=== PATIENT | male | born 1960 | race Caucasian/White ===

== ENCOUNTER 2016-08-13 07:15 | Observation (INO) | payer SELFPAY ==
[~2016-08-13] VITALS: Ht 188 cm; Wt 81.0 kg
[2016-08-13] VITALS (9 sets, daily range): BP systolic 129–182; BP diastolic 80–91; PULSE 61–77; RESP 16–20; TEMP 97.8; O2SAT 92–100
[~2016-08-13 07:15] MED LIST: LORT7.5T3 PO; PENI500T PO; Z.0.NO CURRENT MEDS
--- NOTE | 2016-08-13 07:50 | PD ---
HPI Chief Complaint: Psychiatric Symptoms Time Seen by Provider: 07:29 Travel History International Travel<30 days: No Contact w/Intl Traveler<30days: No Traveled to known affect area: No History of Present Illness HPI This patient is brought in under police Granda act for suicidal ideation. He took an intentional overdose of alcohol and Klonopin. Patient is not able to provide much in the way of useful history or review of systems. It's unclear how much she took and when he took it. Denies other drugs. Denies IV drug use. PFSH Past Medical History Hypertension: Yes Neurologic: Yes (BELLS PALSY OVER PAST 1 YEAR, SYMPTOMS RECENTLY SUBSIDING) Social History Alcohol Use: Yes Tobacco Use: Yes (1 PPD) Allergies-Medications (Allergen,Severity, Reaction): Coded Allergies: No Known Allergies (Verified , 06/10/12) Reported Meds & Prescriptions Reported Meds & Active Scripts Active Lortab 7.5/500 (Acetaminophen/Hydrocodone Bitart) Tab 1 Tab PO Q6HPRN FOR PAIN Pen Vk (Penicillin V Potassium) 500 Mg Tab 1 Tab PO Q6 Reported No Current Meds (Miscellaneous Medication) Misc Review of Systems ROS Limitations: Clinical Condition, Altered Mental Status, Uncooperative, Poor Historian Physical Exam Narrative GENERAL: Disheveled well-developed patient in no apparent distress. SKIN: Focused skin assessment reveals no rash and nodules. Skin is Warm and dry. HEAD: Superficial abrasions/scratches to the scalp. Normocephalic. EYES: Pupils equal and round. No scleral icterus. No injection or drainage. ENT: No nasal bleeding or discharge. Mucous membranes pink and moist. NECK: Trachea midline. No JVD. No midline tenderness CARDIOVASCULAR: Regular rate and rhythm. No murmur appreciated. RESPIRATORY: No accessory muscle use. Clear to auscultation. Breath sounds equal bilaterally. GASTROINTESTINAL: Abdomen soft, non-tender, nondistended. Hepatic and splenic margins not palpable. MUSCULOSKELETAL: No obvious deformities. No clubbing. No cyanosis. No edema. NEUROLOGICAL: Awake and alert. No obvious cranial nerve deficits. Motor grossly within normal limits. Normal speech. PSYCHIATRIC: Appropriate mood and affect; insight and judgment poor. : Extremely swollen penis shaft, circumcised. No testicular or scrotal abnormality. No bruising. Some superficial skin breakdown on the volar aspect of the shaft Data Data Last Documented VS Vital Signs Date Time Temp Pulse Resp B/P Pulse Ox O2 Delivery O2 Flow Rate FiO2 08/13/16 14:00 70 16 159/83 96 Room Air 08/13/16 11:13 2 Orders Complete Blood Count With Diff (08/13/16 07:44) Basic Metabolic Panel (Bmp) (08/13/16 07:44) Urinalysis - C+S If Indicated (08/13/16 07:44) Oximetry (08/13/16 07:44) Iv Access Insert/Monitor (08/13/16 07:44) Ecg Monitoring (08/13/16 07:44) Psych Screen (08/13/16 07:44) Drug Screen, Random Urine (08/13/16 07:44) Alcohol (Ethanol) (08/13/16 07:44) Salicylates (Aspirin) (08/13/16 07:44) Tylenol (Acetaminophen) (08/13/16 07:44) Ct Brain W/O Iv Contrast(Rout) (08/13/16 ) Urine Culture (08/13/16 09:40) Electrocardiogram (08/13/16 07:52) Admit Order (Ed Use Only) (08/13/16 15:10) Labs Laboratory Tests Test 08/13/16 08/13/16 07:50 09:40 White Blood Count 5.3 TH/MM3 Red Blood Count 4.93 MIL/MM3 Hemoglobin 14.4 GM/DL Hematocrit 42.1 % Mean Corpuscular Volume 85.4 FL Mean Corpuscular Hemoglobin 29.2 PG Mean Corpuscular Hemoglobin 34.1 % Concent Red Cell Distribution Width 13.7 % Platelet Count 137 TH/MM3 Mean Platelet Volume 9.5 FL Neutrophils (%) (Auto) 61.9 % Lymphocytes (%) (Auto) 24.7 % Monocytes (%) (Auto) 9.3 % Eosinophils (%) (Auto) 3.6 % Basophils (%) (Auto) 0.5 % Neutrophils # (Auto) 3.3 TH/MM3 Lymphocytes # (Auto) 1.3 TH/MM3 Monocytes # (Auto) 0.5 TH/MM3 Eosinophils # (Auto) 0.2 TH/MM3 Basophils # (Auto) 0.0 TH/MM3 CBC Comment DIFF FINAL Differential Comment Sodium Level 143 MEQ/L Potassium Level 3.2 MEQ/L Chloride Level 107 MEQ/L Carbon Dioxide Level 26.1 MEQ/L Anion Gap 10 MEQ/L Blood Urea Nitrogen 11 MG/DL Creatinine 0.87 MG/DL Estimat Glomerular Filtration 91 ML/MIN Rate Random Glucose 78 MG/DL Calcium Level 8.6 MG/DL Salicylates Level 2.0 MG/DL Acetaminophen Level LESS THAN 2.0 MCG/ML Ethyl Alcohol Level LESS THAN 3 MG/DL Urine Color YELLOW Urine Turbidity CLEAR Urine pH 6.0 Urine Specific [place] 1.011 Urine Protein TRACE mg/dL Urine Glucose (UA) NEG mg/dL Urine Ketones NEG mg/dL Urine Occult Blood MOD Urine Nitrite NEG Urine Bilirubin NEG Urine Urobilinogen LESS THAN 2.0 MG/DL Urine Leukocyte Esterase SMALL Urine RBC 0-3 /hpf Urine WBC 0-2 /hpf Urine WBC Clumps RARE Urine Bacteria RARE /hpf Microscopic Urinalysis Comment CULTURE INDICATED MDM Medical Decision Making Medical Screen Exam Complete: Yes Emergency Medical Condition: Yes Medical Record Reviewed: Yes Differential Diagnosis Overdose, suicidal ideation, intoxication, penile edema Narrative Course I have reviewed the patient's electronic medical record. Last visit here was June 2012 for dental pain IV placed CBC is normal Metabolic profile shows hypokalemia of 3.2 Alcohol level is negative Tylenol is negative Aspirin is negative Urinalysis is clean Urine tox screen for some reason was not done and I'm calling the lab to run it now I've ordered psychiatric evaluation as he is here under the Granda act. Patient has a lot of penile edema from a constrictive band that he was wearing for according to him a long time. I would Like to see if he is able to urinate on his own. Patient was able to be catheterized without difficulty. I observed him for a total of 7.5 hours and he still is drowsy and altered and not stable for outpatient follow-up or even psych screening because he so unable to provide history. I reviewed with Dr. Jensen who will do observation for toxic encephalopathy from polysubstance abuse Critical Care Narrative Aggregate critical care time was 32 minutes. Time to perform other separately billable procedures was not included in the critical care time. My time did not include minutes spent treating any other patients simultaneously or on activities that did not directly contribute to the patient's treatment. The services I provided to this patient were to treat and/or prevent clinically significant deterioration that could result in: Loss of airway, cardiopulmonary arrest, hypoxemic brain injury, aspiration I provided critical care services requiring my management, as noted below: Chart data review, documentation time, medication orders and management, vital sign assessments/reviewing monitor data, ordering and reviewing lab tests, ordering and interpreting/reviewing x-rays and diagnostic studies, care of the patient and discussion of the patient with the admitting physicians. Diagnosis Primary Impression: Toxic encephalopathy Additional Impression: Polysubstance abuse Admitting Information Admitting Physician Requests: Observation Anthony Ybarra MD Aug 13, 2016 07:50
[2016-08-13 08:21] LABS: AUTOMATED NEUTROPHIL # 3.3 TH/MM3 (1.8-7.7); BASOPHIL % 0.5 % (0.0-2.0); EOSINOPHIL # 0.2 TH/MM3 (0-0.4); EOSINOPHIL % 3.6 % (0.0-4.0); HEMATOCRIT 42.1 % (39.0-51.0); HEMO FLAGS DIFF FINAL; LYMPH % 24.7 % (9.0-44.0); LYMPHOCYTE # 1.3 TH/MM3 (1.0-4.8); MEAN CELL VOLUME 85.4 FL (80.0-100.0); MEAN CORPUSCULAR HEMOGLOBIN 29.2 PG (27.0-34.0); MEAN CORPUSCULAR HGB CONC 34.1 % (32.0-36.0); MONO % 9.3 % (0.0-8.0); NEUT % 61.9 % (16.0-70.0); PLATELET COUNT 137 TH/MM3 (150-450); RED BLOOD COUNT 4.93 MIL/MM3 (4.50-5.90); RED CELL DISTRIBUTION WIDTH 13.7 % (11.6-17.2); WHITE BLOOD COUNT 5.3 TH/MM3 (4.0-11.0)
[2016-08-13 08:33] LABS: ANION GAP 10 MEQ/L (5-15); BICARBONATE 26.1 MEQ/L (21.0-32.0); BLOOD UREA NITROGEN 11 MG/DL (7-18); CHLORIDE 107 MEQ/L (98-107); GLOMERULAR FILTRATION RATE 91 ML/MIN (>89); POTASSIUM 3.2 MEQ/L (3.5-5.1); SODIUM (NA) 143 MEQ/L (136-145)
[2016-08-13 08:34] LABS: ACETAMINOPHEN LESS THAN 2.0 MCG/ML (10.0-30.0)
--- NOTE | 2016-08-13 08:34 | RADRPT ---
EXAM DATE/TIME: 08/13/2016 08:15 [place] COMPARISON: No previous studies available for comparison. INDICATIONS : Altered mental status RADIATION DOSE: 43.23 CTDIvol (mGy) MEDICAL HISTORY : Non-responsive. SURGICAL HISTORY : Non-responsive. ENCOUNTER: Initial ACUITY: 2 days PAIN SCALE: Non-responsive LOCATION: cranial TECHNIQUE: Multiple contiguous axial images were obtained of the head. Using automated exposure control and adj ustment of the mA and/or kV according to patient size, radiation dose was kept as low as reasonably a chievable to obtain optimal diagnostic quality images. FINDINGS: CEREBRUM: The ventricles are normal for age. No evidence of midline shift, mass lesion, hemorrhage or acute in farction. No extra-axial fluid collections are seen. POSTERIOR FOSSA: The cerebellum and brainstem are intact. The 4th ventricle is midline. The cerebellopontine angle i s unremarkable. EXTRACRANIAL: The visualized portion of the orbits is intact. SKULL: The calvaria is intact. No evidence of skull fracture. CONCLUSION: 1. No acute intracranial abnormality identified. Yasmany Velasquez MD on August 13, 2016 at 8:28 Board Certified Radiologist. This report was verified electronically.
[2016-08-13 10:14] LABS: BLOOD, URINE MOD (NEG); GLUCOSE,URINE NEG (NEG); KETONE, URINE NEG (NEG); NITRITE,URINE NEG (NEG); URINE COLOR YELLOW (YELLW/STRAW)
[2016-08-13 10:51] LABS: BACTERIA, URINE RARE /hpf; RBC, URINE 0-3 /hpf (0-3); WBC, URINE 0-2 /hpf (0-5)
[2016-08-13 10:52] LABS: COMMENT (UR) CULTURE INDICATED; CULTURE IF INDICATED CULTURE INDICATED
[2016-08-13] MEDS ORDERED: SODIUM CHLORIDE 0.9% FLUSH 10 ML FLUSH IV FLUSH PRN (15:30)
[2016-08-13] MEDS ORDERED: ACETAMINOPHEN 325 MG TAB PO PRN ×2 (15:30)
[2016-08-13] MEDS ORDERED: NALOXONE HCL 0.4 MG/ML AMP IV PRN (15:30)
[2016-08-13] MEDS ORDERED: ONDANSETRON HCL 4 MG/2 ML VIAL IVP PRN (15:30)
[2016-08-13 15:40] LABS: AMPHETAMINE, URINE NEG (NEG); BARBITURATES, URINE NEG (NEG); COCAINE, URINE POS (NEG)
--- NOTE | 2016-08-13 16:11 | HHI.HP ---
HPI Service [facility] Primary Care Physician No Primary Care Physician Admission Diagnosis toxic encephalopathy Diagnoses: (1) Toxic encephalopathy (2) Polysubstance abuse Chief Complaint: Altered mental status Travel History International Travel<30 Days: No Contact w/Intl Traveler <30 Da: No Traveled to Known Affected Are: No History of Present Illness Patient is unable to communicate at this time during my exam and history is obtained from the ED report and chart review below: "This patient is brought in under police Granda act for suicidal ideation. He took an intentional overdose of alcohol and Klonopin. Patient is not able to provide much in the way of useful history or review of systems. It's unclear how much she took and when he took it. Denies other drugs. Denies IV drug use. " Abnormal labs include a UDS positive for cocaine, marijuana, benzo Review of Systems ROS Limitations: Altered Mental Status Except as stated in HPI: all other systems reviewed are Neg Past Family Social History Past Medical History Hypertension: Yes Neurologic: Yes (BELLS PALSY OVER PAST 1 YEAR, SYMPTOMS RECENTLY SUBSIDING) Past Surgical History Unable to obtain Reported Medications Unable to obtain Allergies: Coded Allergies: No Known Allergies (Verified , 06/10/12) Family History Unable to obtain Social History Alcohol Use: Yes Tobacco Use: Yes (1 PPD) Physical Exam Vital Signs Vital Signs Date Time Temp Pulse Resp B/P Pulse Ox O2 Delivery O2 Flow Rate FiO2 08/13/16 14:00 70 16 159/83 96 Room Air 08/13/16 11:13 61 16 131/85 100 Nasal Cannula 2 08/13/16 09:14 63 16 136/81 92 Nasal Cannula 3 08/13/16 07:45 95 Room Air 08/13/16 07:23 76 16 100 Physical Exam GENERAL: lethargic SKIN: No rashes, ecchymoses or lesions. Cool and dry. HEAD: Atraumatic. Normocephalic. No temporal or scalp tenderness. EYES: Pupils equal round and reactive. Extraocular motions intact. No scleral icterus. No injection or drainage. ENT: Nose without bleeding, purulent drainage or septal hematoma. Throat without erythema, tonsillar hypertrophy or exudate. Uvula midline. Airway patent. NECK: Trachea midline. No JVD or lymphadenopathy. Supple, nontender, no meningeal signs. CARDIOVASCULAR: Regular rate and rhythm without murmurs, gallops, or rubs. RESPIRATORY: Clear to auscultation. Breath sounds equal bilaterally. No wheezes , rales, or rhonchi. GASTROINTESTINAL: Abdomen soft, non-tender, nondistended. No hepato-splenomegaly , or palpable masses. No guarding. MUSCULOSKELETAL: Extremities without clubbing, cyanosis, or edema. No joint tenderness, effusion, or edema noted. No calf tenderness. Negative Homans sign bilaterally. NEUROLOGICAL: lethargic : penile and scrotal edema Laboratory Laboratory Tests Test 08/13/16 08/13/16 07:50 09:40 White Blood Count 5.3 Red Blood Count 4.93 Hemoglobin 14.4 Hematocrit 42.1 Mean Corpuscular Volume 85.4 Mean Corpuscular Hemoglobin 29.2 Mean Corpuscular Hemoglobin 34.1 Concent Red Cell Distribution Width 13.7 Platelet Count 137 Mean Platelet Volume 9.5 Neutrophils (%) (Auto) 61.9 Lymphocytes (%) (Auto) 24.7 Monocytes (%) (Auto) 9.3 Eosinophils (%) (Auto) 3.6 Basophils (%) (Auto) 0.5 Neutrophils # (Auto) 3.3 Lymphocytes # (Auto) 1.3 Monocytes # (Auto) 0.5 Eosinophils # (Auto) 0.2 Basophils # (Auto) 0.0 CBC Comment DIFF FINAL Differential Comment Sodium Level 143 Potassium Level 3.2 Chloride Level 107 Carbon Dioxide Level 26.1 Anion Gap 10 Blood Urea Nitrogen 11 Creatinine 0.87 Estimat Glomerular Filtration 91 Rate Random Glucose 78 Calcium Level 8.6 Salicylates Level 2.0 Acetaminophen Level LESS THAN 2.0 Ethyl Alcohol Level LESS THAN 3 Urine Color YELLOW Urine Turbidity CLEAR Urine pH 6.0 Urine Specific [place] 1.011 Urine Protein TRACE Urine Glucose (UA) NEG Urine Ketones NEG Urine Occult Blood MOD Urine Nitrite NEG Urine Bilirubin NEG Urine Urobilinogen LESS THAN 2.0 Urine Leukocyte Esterase SMALL Urine RBC 0-3 Urine WBC 0-2 Urine WBC Clumps RARE Urine Bacteria RARE Microscopic Urinalysis Comment CULTURE INDICATED Urine Opiates Screen NEG Urine Barbiturates Screen NEG Urine Amphetamines Screen NEG Urine Benzodiazepines Screen POS Urine Cocaine Screen POS Urine Cannabinoids Screen POS Date/Time Procedure Status Source Growth 08/13/16 09:40 Urine Culture Received Urine Random Urine Pending Result Diagram: 08/13/16 0750 08/13/16 0750 Imaging Last Impressions Head CT 08/13/16 0000 Signed Impressions: Service Date/Time: Saturday, August 13, 2016 08:15 - CONCLUSION: 1. No acute intracranial abnormality identified. Yasmany Velasquez MD Assessment and Plan Problem List: (1) Toxic encephalopathy ICD Code: G92 Status: Acute (2) Polysubstance abuse ICD Code: F19.10 Status: Acute Assessment and Plan 56-year-old man with Toxic encephalopathy Polysubstance abuse Head CT noted and reviewed by me without any intracranial process UDS positive for cocaine, marijuana, benzos Penile and scrotal edema Elevate scrotum and penile Laxis PRN Acute mood disorder Currently Granda acted and consult psychiatry DVT prophylaxis: Bilateral SCDs Code Status Full code Discussed Condition With ED physician Bartolome Dukes MD Aug 13, 2016 16:11
[2016-08-13] MEDS ORDERED: cloNIDine HCL 0.1 MG TAB PO PRN (18:45)
[2016-08-13] MEDS: ENALAPRILAT 1.25 MG/ML VIAL IV PUSH PRN (18:49)
[2016-08-13] MEDS: SODIUM CHLORIDE 0.9% FLUSH 10 ML FLUSH IV FLUSH SCH (20:10)
[2016-08-14 00:49] VITALS: BP 134/82; PULSE 88; RESP 20; TEMP 97.8; O2SAT 97
[2016-08-14 04:14] VITALS: BP 116/66; PULSE 77; RESP 18; TEMP 98.5; O2SAT 97
[2016-08-14 05:11] LABS: BASOPHIL % 0.4 % (0.0-2.0); EOSINOPHIL # 0.1 TH/MM3 (0-0.4); EOSINOPHIL % 2.1 % (0.0-4.0); HEMATOCRIT 46.7 % (39.0-51.0); HEMO FLAGS DIFF FINAL; LYMPH % 20.4 % (9.0-44.0); LYMPHOCYTE # 1.5 TH/MM3 (1.0-4.8); MEAN CELL VOLUME 86.2 FL (80.0-100.0); MEAN CORPUSCULAR HEMOGLOBIN 28.6 PG (27.0-34.0); MEAN CORPUSCULAR HGB CONC 33.1 % (32.0-36.0); MONO % 7.9 % (0.0-8.0); NEUT % 69.2 % (16.0-70.0); PLATELET COUNT 143 TH/MM3 (150-450); RED BLOOD COUNT 5.42 MIL/MM3 (4.50-5.90); RED CELL DISTRIBUTION WIDTH 13.8 % (11.6-17.2); WHITE BLOOD COUNT 7.2 TH/MM3 (4.0-11.0)
[2016-08-14 05:38] LABS: ALT (GPT) 18 U/L (12-78); ANION GAP 10 MEQ/L (5-15); AST (GOT) 19 U/L (15-37); BICARBONATE 26.1 MEQ/L (21.0-32.0); BLOOD UREA NITROGEN 16 MG/DL (7-18); CHLORIDE 107 MEQ/L (98-107); GLOMERULAR FILTRATION RATE 97 ML/MIN (>89); POTASSIUM 3.2 MEQ/L (3.5-5.1); SODIUM (NA) 143 MEQ/L (136-145)
[2016-08-14 05:40] LABS: ALKALINE PHOSPHATASE 84 U/L (45-117); TOTAL BILIRUBIN ADULT 1.3 MG/DL (0.2-1.0)
[2016-08-14 08:38] VITALS: BP 181/101; PULSE 83; RESP 22; TEMP 98.5; O2SAT 99
[2016-08-14] MEDS: ENALAPRILAT 1.25 MG/ML VIAL IV PUSH PRN (09:14)
[2016-08-14] MEDS: SODIUM CHLORIDE 0.9% FLUSH 10 ML FLUSH IV FLUSH SCH (09:14)
[2016-08-14] MEDS ORDERED: POTASSIUM CHLORIDE 20 MEQ CONTROLLED RELEASE TAB PO ONE (10:45)
[2016-08-14 10:54] VITALS: BP 126/84
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
[2016-08-14 11:52] VITALS: BP 125/82; PULSE 86; RESP 18; TEMP 98.7; O2SAT 96
--- NOTE | 2016-08-14 12:59 | PD ---
History of Present Illness Chief Complaint: Psychiatric Symptoms Time Seen by Provider: 13:00 Travel History International Travel<30 Days: No Contact w/Intl Traveler<30days: No Known affected area: No Legal Status Legal Status: Granda Act Granda Act Signed By: History of Present Illness: Patient interviewed and recalls taking approximately 60 Klonopin-type pills that he got off the street. He reportedly does not remember why he took them at this time but this physician reminded him he had earlier stated he was suicidal. At this point, the patient denies being suicidal or homicidal. He is verbally john for safety. His cognition is intact and he exhibits no psychotic symptoms. He freely admits to his polysubstance abuse and denies being an alcoholic. However he does spend his money on crack cocaine and other substances. He is somewhat stressed because he has paid over $100,000 per a boat he owns and they are threatening to repossess it because he owes $1500 PFSH Past Medical History Hypertension: Yes Neurologic: Yes (BELLS PALSY OVER PAST 1 YEAR, SYMPTOMS RECENTLY SUBSIDING) Psychiatric History Psychiatric History Hx Psychiatric Treatment: Denies for previous treatment. History of Inpatient Treatment: No Guns or firearms in home: No Social History Hx Alcohol Use: Yes Hx Tobacco Use: Yes (1 PPD) Substance Use Type: Alcohol, Crack, Marijuana, Benzos (Valium,Xanax) Hx of Substance Use Treatment: No Allergies-Medications (Allergen,Severity, Reaction): Coded Allergies: No Known Allergies (Verified , 06/10/12) Reported Meds & Prescriptions Reported Meds & Active Scripts Active Review of Systems Except as stated in HPI: all other systems reviewed are Neg Exam Alert: Yes [place]: Person, Place, Date, Situation Mood: Calm Affect: Appropriate Speech: Clear, Logical Eye Contact: Normal Memory Intact: Immediate, Recent, Remote Insight/Judgement Adequate, except when it comes to substance abuse. MDM Medical Decision Making Medical Record Reviewed: Yes Assessment/Plan Patient's Granda act is being lifted per his request and he may be discharged when he is medically cleared. At this point, his cognition is intact and he is adamantly denying any suicidal or homicidal ideation, plan or intent. He was advised by this physician that he should not continue to abuse drugs such as crack cocaine and benzodiazepines. While this may have been a suicide attempt, when the patient is using drugs, it is difficult to ascertain his true motive. In either event, the patient's primary problem is drug abuse and this facility is not licensed for detox and rehabilitation. The patient was given a referral to [facility]. He wants to find his girlfriend first. He also wants to continue working his [employer] business. Both of these are signs of future thinking and this physician does not believe the patient is suicidal at this time. Finally, the patient wants to continue using his boat for fishing. Orders Admit Order (Ed Use Only) (08/13/16 15:10) Place In Observation (08/13/16 ) Code Status (08/13/16 15:24) Vital Signs (Adult) Q4H (08/13/16 15:24) Activity Oob With Assistance (08/13/16 15:24) Sodium Chloride 0.9% Flush (Ns Flush) (08/13/16 15:30) Sodium Chloride 0.9% Flush (Ns Flush) (08/13/16 21:00) Acetaminophen (Tylenol) (08/13/16 15:30) Ondansetron Inj (Zofran Inj) (08/13/16 15:30) Comprehensive Metabolic Panel (08/14/16 06:00) Complete Blood Count With Diff (08/14/16 06:00) Scd Bilateral/Knee High SIMRAN.BID (08/13/16 15:24) Brian Bilateral/Knee High SIMRAN.QSHIFT (08/13/16 15:24) Acetaminophen (Tylenol) (08/13/16 15:30) Naloxone Inj (Narcan Inj) (08/13/16 15:30) Consult Psychiatry (08/13/16 ) (Hub Use Only)Inp Phy Cons/Ref (08/13/16 ) Enalaprilat Inj (Vasotec Inj) (08/13/16 18:45) Clonidine (Catapres) (08/13/16 18:45) Physician Name Changes (08/14/16 ) Potassium Chloride (Kcl) (08/14/16 10:45) Magnesium (Mg) (08/14/16 10:41) Neuro Checks . ORDERED (08/14/16 11:07) Diet Regular Basic (08/14/16 Lunch) Results Vital Signs Date Time Temp Pulse Resp B/P Pulse Ox O2 Delivery O2 Flow Rate FiO2 08/14/16 11:52 98.7 86 18 125/82 96 08/14/16 10:54 126/84 08/14/16 08:38 98.5 83 22 181/101 99 08/14/16 04:14 98.5 77 18 116/66 97 08/14/16 00:49 97.8 88 20 134/82 97 08/13/16 19:15 97.8 75 20 129/80 98 08/13/16 18:33 73 18 182/91 98 08/13/16 17:58 77 16 170/80 100 Room Air 08/13/16 15:55 74 16 138/90 96 Nasal Cannula 2 08/13/16 14:00 70 16 159/83 96 Room Air Laboratory Tests Test 08/14/16 04:18 White Blood Count 7.2 Red Blood Count 5.42 Hemoglobin 15.5 Hematocrit 46.7 Mean Corpuscular Volume 86.2 Mean Corpuscular Hemoglobin 28.6 Mean Corpuscular Hemoglobin 33.1 Concent Red Cell Distribution Width 13.8 Platelet Count 143 Mean Platelet Volume 9.6 Neutrophils (%) (Auto) 69.2 Lymphocytes (%) (Auto) 20.4 Monocytes (%) (Auto) 7.9 Eosinophils (%) (Auto) 2.1 Basophils (%) (Auto) 0.4 Neutrophils # (Auto) 5.0 Lymphocytes # (Auto) 1.5 Monocytes # (Auto) 0.6 Eosinophils # (Auto) 0.1 Basophils # (Auto) 0.0 CBC Comment DIFF FINAL Differential Comment Sodium Level 143 Potassium Level 3.2 Chloride Level 107 Carbon Dioxide Level 26.1 Anion Gap 10 Blood Urea Nitrogen 16 Creatinine 0.83 Estimat Glomerular Filtration 97 Rate Random Glucose 68 Calcium Level 8.7 Magnesium Level 2.4 Total Bilirubin 1.3 Aspartate Amino Transf 19 (AST/SGOT) Alanine Aminotransferase 18 (ALT/SGPT) Alkaline Phosphatase 84 Total Protein 7.4 Albumin 3.7 Date/Time Procedure Status Source Growth 08/13/16 09:40 Urine Culture Received Urine Random Urine Pending Diagnosis Primary Impression: Polysubstance abuse Myke Jimenez MD Aug 14, 2016 12:59
--- NOTE | 2016-08-14 14:38 | HHI.DCPOC ---
Discharge Care Plan Diagnosis: (1) Polysubstance abuse (2) Depression Goals to Promote Your Health * To prevent worsening of your condition and complications * To maintain your health at the optimal level Directions to Meet Your Goals Take your medications as prescribed Follow your dietary instruction Follow activity as directed Keep your appointments as scheduled Take your immunizations and boosters as scheduled If your symptoms worsen call your PCP, if no PCP go to Urgent Care Center or Emergency Room Smoking is Dangerous to Your Health. Avoid second hand smoke Call the 24-hour hour crisis hotline for domestic abuse at Juanis Calles PA-C Aug 14, 2016 14:38
--- NOTE | 2016-08-14 21:19 | EKG ---
Date Performed: 08/13/2016 Time Performed: 07:52:43 PTAGE: 56 years EKG: Sinus rhythm MINIMAL VOLTAGE CRITERIA FOR LVH, CONSIDER NORMAL VARIANT BORDERLINE ECG NO PREVIOUS TRACING DOCTOR: Eneida Mosher Interpretating Date/Time 08/14/2016 21:14:21
== END 2016-08-14 17:45 | disposition home or self-care (01) ==
LOC: NEPE 07:15 → NEDA 15:14 → NEPGCP 18:36
PROVIDERS: ADMIT Hospitalist; ATTEND Hospitalist
DX: T42.4X2A Poisoning by benzodiazepines, intentional self-harm, initial encounter (principal); G92 Toxic encephalopathy; I10 Essential (primary) hypertension; G51.0 Bell's palsy; N48.89 Other specified disorders of penis; N50.89 Other specified disorders of the male genital organs; F39 Unspecified mood [affective] disorder; F17.200 Nicotine dependence, unspecified, uncomplicated
CPT/HCPCS: 70450; 80048; 80053; 80307; 81001; 83735; 85025; 87086; 93005; 96374; 96375; 96376; 99291; G0378; J2405

== ENCOUNTER 2016-09-07 17:30 | Emergency (ER) | payer OTHER ==
[~2016-09-07] VITALS: Ht 185.4 cm; Wt 79.0 kg
--- NOTE | 2016-09-07 19:59 | PD ---
HPI Chief Complaint: Psychiatric Symptoms Time Seen by Provider: 19:48 Travel History International Travel<30 days: No Contact w/Intl Traveler<30days: No Traveled to known affect area: No History of Present Illness HPI 56-year-old male presents under Granda act initiated by a nurse practitioner at [facility]. The patient was admitted on August 13 for toxic encephalopathy. He is discharged in August 14. Reports that he return on August 15 because he is still feeling depressed. He reportedly attempted to hang himself and also attempted carbon monoxide poisoning on that day. He reports that since then his life has become somewhat more stableshe reports that he quit drinking alcohol and he moved into his boat. He has since started to see a counselor at [facility] whom he saw today. He reports "I must said the wrong thing because I was placed under Granda act." According to his paperwork the patient has been having some life stressors and reportedly says that he does not want to live anymore. He reports that he he actually feels much better than when he was here on August 13 and is denying any thoughts of depression, suicidal or homicidal ideation. He admits to taking half a Lortab recently as well as smoking some marijuana. He denies any other drug use. He reports that he was looking forward to having his son visit him this weekend. He has no other complaints at this time. [facility], [facility] Past Medical History Hypertension: Yes Neurologic: Yes (BELLS PALSY OVER PAST 1 YEAR, SYMPTOMS RECENTLY SUBSIDING) Social History Alcohol Use: Yes Tobacco Use: Yes (1 PPD) Allergies-Medications (Allergen,Severity, Reaction): Coded Allergies: No Known Allergies (Verified , 09/07/16) Reported Meds & Prescriptions Reported Meds & Active Scripts Active No Active Prescriptions or Reported Medications Review of Systems Except as stated in HPI: all other systems reviewed are Neg Physical Exam Narrative GENERAL: Well-developed well-nourished male in no acute distress alert and interactive and responding to questions and commands appropriately. SKIN: Warm and dry. HEAD: Atraumatic. Normocephalic. EYES: Pupils equal and round. No scleral icterus. No injection or drainage. ENT: No nasal bleeding or discharge. Mucous membranes pink and moist. NECK: Trachea midline. No JVD. CARDIOVASCULAR: Regular rate and rhythm. No murmur appreciated. RESPIRATORY: No accessory muscle use. Clear to auscultation. Breath sounds equal bilaterally. GASTROINTESTINAL: Abdomen soft, non-tender, nondistended. Hepatic and splenic margins not palpable. MUSCULOSKELETAL: No obvious deformities. No clubbing. No cyanosis. No edema. NEUROLOGICAL: Awake and alert. No obvious cranial nerve deficits. Motor grossly within normal limits. Normal speech. PSYCHIATRIC: Appropriate mood and affect; insight and judgment normal. Data Data Last Documented VS Vital Signs Date Time Temp Pulse Resp B/P Pulse Ox O2 Delivery O2 Flow Rate FiO2 09/07/16 20:17 98.2 71 16 167/102 98 Room Air Orders Drug Screen, Random Urine (09/07/16 19:55) Psych Screen (09/07/16 19:55) [facility] Medical Decision Making Medical Screen Exam Complete: Yes Emergency Medical Condition: Yes Medical Record Reviewed: Yes Differential Diagnosis Adjustment reaction, acute psychosis, substance induced mood disorder, major depressive disorder Narrative Course 56-year-old male with recent admission for toxic encephalopathy presents under Granda act for psychiatric evaluation. I reviewed his lab work from his previous visit. His CBC revealed a platelet count of 143, otherwise unremarkable. CMP revealed potassium 3.2 otherwise unremarkable. Drug screen was positive for benzodiazepines, cocaine and cannabinoids. Mental health screening discussed with the patient. Psychiatric screen ordered. The patient is medically cleared for psychiatric disposition. Diagnosis Primary Impression: Medical clearance for psychiatric admission Scripts No Active Prescriptions or Reported Meds Hemant George Sep 07, 2016 19:59
[2016-09-07 20:17] VITALS: BP 167/102; PULSE 71; RESP 16; TEMP 98.2; O2SAT 98
[2016-09-07 21:48] LABS: AMPHETAMINE, URINE NEG (NEG); BARBITURATES, URINE NEG (NEG); COCAINE, URINE POS (NEG)
[2016-09-07 21:53] LABS: AUTOMATED NEUTROPHIL # 2.6 TH/MM3 (1.8-7.7); BASOPHIL % 0.7 % (0.0-2.0); EOSINOPHIL # 0.1 TH/MM3 (0-0.4); EOSINOPHIL % 2.3 % (0.0-4.0); HEMATOCRIT 40.3 % (39.0-51.0); HEMO FLAGS DIFF FINAL; LYMPH % 42.9 % (9.0-44.0); LYMPHOCYTE # 2.5 TH/MM3 (1.0-4.8); MEAN CELL VOLUME 84.9 FL (80.0-100.0); MEAN CORPUSCULAR HGB CONC 34.2 % (32.0-36.0); MONO % 8.9 % (0.0-8.0); NEUT % 45.2 % (16.0-70.0); PLATELET COUNT 146 TH/MM3 (150-450); RED BLOOD COUNT 4.74 MIL/MM3 (4.50-5.90); RED CELL DISTRIBUTION WIDTH 13.8 % (11.6-17.2); WHITE BLOOD COUNT 5.8 TH/MM3 (4.0-11.0)
[2016-09-07 22:14] LABS: BICARBONATE 27.4 MEQ/L (21.0-32.0); POTASSIUM 3.7 MEQ/L (3.5-5.1)
[2016-09-08 00:49] VITALS: BP 166/98; PULSE 71; RESP 16; O2SAT 98
[2016-09-08 07:04] VITALS: BP 159/106; PULSE 81; RESP 18; O2SAT 98
--- NOTE | 2016-09-08 10:23 | PD ---
History of Present Illness Chief Complaint: Psychiatric Symptoms Time Seen by Provider: 10:00 Travel History International Travel<30 Days: No Contact w/Intl Traveler<30days: No Known affected area: No Legal Status Legal Status: Granda Act Granda Act Comment: INTITIATED BY: [facility] AT [facility] History of Present Illness: 56-year-old male with significant history of alcohol abuse, apparently Jesus Alberto acted for attempting suicide, once by hanging and a second time by carbon monoxide poisoning. He again stated he was stressed and did not want to live. He was recently evicted from his home and lives on his boat. His ex-girlfriend has a restraining order against him. However, he was positive for cocaine and cannabis on this visit. Alcohol toxicology screen was not ordered but the patient also admits to intoxication last night. At this time the patient is calm and cooperative. He denies any suicidal or homicidal ideation. He continues to report multiple stressors in his life but they appear to be the result of his alcohol and drug use. He is john for safety. PFSH Past Medical History Hypertension: Yes Neurologic: Yes (BELLS PALSY OVER PAST 1 YEAR, SYMPTOMS RECENTLY SUBSIDING) Immunizations Current: Yes Tetanus Vaccination: Unknown Influenza Vaccination: No Psychiatric History Psychiatric History Hx Psychiatric Treatment: [facility] OUTPATIENT FOR COUNSELOR TODAY, 09-07-16 History of Inpatient Treatment: No Guns or firearms in home: No Social History Hx Alcohol Use: No Hx Tobacco Use: Yes (1 PPD) Hx Substance Use: Yes Substance Use Type: Alcohol, Crack, Marijuana, Benzos (Valium,Xanax), Cocaine Hx of Substance Use Treatment: No Allergies-Medications (Allergen,Severity, Reaction): Coded Allergies: No Known Allergies (Verified , 09/07/16) Reported Meds & Prescriptions Reported Meds & Active Scripts Active No Active Prescriptions or Reported Medications Review of Systems Except as stated in HPI: all other systems reviewed are Neg Exam Alert: Yes [place]: Person, Place, Date, Situation Mood: Calm Affect: Appropriate, Euthymic Speech: Clear, Logical Eye Contact: Normal Memory Intact: Immediate, Recent, Remote Insight/Judgement Adequate [facility] Medical Decision Making Medical Record Reviewed: Yes Assessment/Plan Spoke to the patient's nurse regarding the patient's condition. Patient has been observed since last night. He is no longer intoxicated. He does continue to admit to financial stress, relationship stress, employment stress, etc. These problems however remain related to his drug and alcohol abuse. He does not qualify for Granda act or inpatient psychiatric hospitalization at this time. He would like to go home and this physician recommends he returned to [facility] for treatment of his substance abuse problems. Orders Drug Screen, Random Urine (09/07/16 19:55) Psych Screen (09/07/16 19:55) Complete Blood Count With Diff (09/07/16 21:30) Basic Metabolic Panel (Bmp) (09/07/16 21:30) Diet Regular Basic (09/08/16 Breakfast) Results Vital Signs Date Time Temp Pulse Resp B/P Pulse Ox O2 Delivery O2 Flow Rate FiO2 09/08/16 07:04 81 18 159/106 98 09/08/16 00:49 71 16 166/98 98 Room Air 09/07/16 20:17 98.2 71 16 167/102 98 Room Air Laboratory Tests Test 09/07/16 09/07/16 21:15 21:45 Urine Opiates Screen NEG Urine Barbiturates Screen NEG Urine Amphetamines Screen NEG Urine Benzodiazepines Screen NEG Urine Cocaine Screen POS Urine Cannabinoids Screen POS White Blood Count 5.8 Red Blood Count 4.74 Hemoglobin 13.8 Hematocrit 40.3 Mean Corpuscular Volume 84.9 Mean Corpuscular Hemoglobin 29.0 Mean Corpuscular Hemoglobin 34.2 Concent Red Cell Distribution Width 13.8 Platelet Count 146 Mean Platelet Volume 9.5 Neutrophils (%) (Auto) 45.2 Lymphocytes (%) (Auto) 42.9 Monocytes (%) (Auto) 8.9 Eosinophils (%) (Auto) 2.3 Basophils (%) (Auto) 0.7 Neutrophils # (Auto) 2.6 Lymphocytes # (Auto) 2.5 Monocytes # (Auto) 0.5 Eosinophils # (Auto) 0.1 Basophils # (Auto) 0.0 CBC Comment DIFF FINAL Differential Comment Sodium Level 136 Potassium Level 3.7 Chloride Level 104 Carbon Dioxide Level 27.4 Anion Gap 5 Blood Urea Nitrogen 14 Creatinine 0.74 Estimat Glomerular Filtration 110 Rate Random Glucose 76 Calcium Level 8.1 Diagnosis Primary Impression: Adjustment disorder with mixed disturbance of emotions and conduct Additional Impression: Cocaine abuse Prescriptions No Active Prescriptions or Reported Meds Problem Qualifiers Myke Jimenez MD Sep 08, 2016 10:23
== END 2016-09-08 10:37 | disposition home or self-care (01) ==
LOC: NEDAMB 17:30 → NEPJ 09-08 10:37
DX: F43.25 Adjustment disorder with mixed disturbance of emotions and conduct (principal); F14.10 Cocaine abuse, uncomplicated; I10 Essential (primary) hypertension; F17.200 Nicotine dependence, unspecified, uncomplicated
CPT/HCPCS: 80048; 80307; 85025; 99284

== ENCOUNTER 2017-07-21 15:13 | Emergency (ER) | payer SELFPAY ==
[~2017-07-21] VITALS: Ht 182.9 cm; Wt 82.0 kg
[2017-07-21 15:20] VITALS: BP 132/84; PULSE 88; RESP 18; TEMP 98.4; O2SAT 97
[2017-07-21] MEDS ORDERED: TETANUS/DIPHTHERIA TOXOID ADULT 0.5 ML VIAL IM ONE (15:45)
--- NOTE | 2017-07-21 15:54 | PD ---
HPI . Laceration Chief Complaint: Laceration Time Seen by Provider: 15:30 Travel History International Travel<30 days: No Contact w/Intl Traveler<30days: No History of Present Illness HPI Patient presents with a laceration on the right forearm. He was sent to us by [facility]. He has been taken to [facility] as a Granda Act. He was found by them to have a laceration on the right forearm. He states that he sustained a laceration 2 weeks ago via a fishing knife. The laceration was found by the staff and history of marginal today and he was sent to us for evaluation and treatment of the laceration. He states that it is "not that bad. " He states it had been healing nicely but that he opened it up last night in an attempt to kill himself. He states that he attempted to cannulate a vein in the laceration with a straw so that he would bleed to . He was found by his girlfriend who contacted the authorities which resulted in a Granda Act. His tetanus is not up-to-date. [facility] Past Medical History Hypertension: Yes Neurologic: Yes (BELLS PALSY OVER PAST 1 YEAR, SYMPTOMS RECENTLY SUBSIDING) Immunizations Current: Yes Social History Alcohol Use: No Tobacco Use: Yes (1 PPD) Substance Use: Yes Allergies-Medications (Allergen,Severity, Reaction): Coded Allergies: No Known Allergies (Verified , 09/07/16) Reported Meds & Prescriptions Reported Meds & Active Scripts Active No Active Prescriptions or Reported Medications Review of Systems Except as stated in HPI: all other systems reviewed are Neg Skin: Positive Other (Laceration) Psychiatric: Positive: Substance Abuse, No: Suicidal Ideations (He states that he is no longer feeling suicidal.) Physical Exam Narrative GENERAL: Awake and alert and in no acute distress. SKIN: Warm and dry. He has a large laceration on the right forearm which is gaping wide open. Wound is clean. No drainage. Surrounding skin is not red or hot. HEAD: Normocephalic/atraumatic. EYES: Pupils are equal. Extraocular movements are intact. NECK: Normal range of motion. CARDIOVASCULAR: Regular rate and rhythm. RESPIRATORY: Nonlabored respirations. MUSCULOSKELETAL: Atraumatic. NEUROLOGICAL: Nonfocal. PSYCHIATRIC: Appropriate mood and affect. Poor judgment. Data Data Orders Orders Tetanus/Diphtheria Tox Adult (Tetanus/Di (07/21/17 15:45) [facility] Medical Decision Making Medical Screen Exam Complete: Yes Emergency Medical Condition: Yes Differential Diagnosis Differential diagnosis includes but is not limited to skin laceration, muscular laceration, tendon laceration, neurovascular laceration. Narrative Course Patient presents with laceration on the right forearm. It is clean appearing. It is gaping wide open. It occurred 2 weeks ago. At this point, the likelihood of wound infection is low. Therefore, the decision was made to go ahead and close it. Procedures Procedure Narrative LACERATION LOCATION: Right forearm LENGTH: 4 cm NUMBER OF STITCHES/KARLEY: 2 REPAIR: The area of the laceration was prepped with ChloraPrep. The laceration was infiltrated with 5 cc of 1% plain lidocaine. The wound was copiously irrigated and explored without evidence of foreign body, tendon injury or neurovascular injury. The wound was closed using karley. This was a single layer repair. A sterile dressing was applied. The patient was advised to keep the dressing clean and dry. Patient tolerated the procedure well. Diagnosis Primary Impression: Laceration of right forearm Qualified Codes: S51.811A - Laceration without foreign body of right forearm, initial encounter Scripts No Active Prescriptions or Reported Meds Disposition: DISCHARGE HOME Condition: Stable Nannette Nolasco MD July 21, 2017 15:54
[2017-07-21 17:25] VITALS: BP 130/70
== END 2017-07-21 17:35 | disposition home or self-care (01) ==
LOC: NEPD 15:13
DX: S51.811A Laceration without foreign body of right forearm, initial encounter (principal); I10 Essential (primary) hypertension; F17.210 Nicotine dependence, cigarettes, uncomplicated; X78.8XXA Intentional self-harm by other sharp object, initial encounter; Z23 Encounter for immunization
CPT/HCPCS: 12002; 90471; 90714